=== PATIENT | male | born 1965 | race Caucasian/White ===

== ENCOUNTER 2019-01-07 20:12 | Emergency (ER) | payer OTHER ==
[2019-01-07 20:56] VITALS: RESP 18; TEMP 98.7
--- NOTE | 2019-01-07 21:57 | ED ---
ENT HPI - General Chief complaint: Dental/Oral Stated complaint: Tooth Pain Time Seen by Provider: 01/07/19 21:26 Source: patient Mode of arrival: ambulatory Limitations: no limitations - History of Present Illness Initial comments: Patient is a 53-year-old male presenting to the emergency department complaining of teeth pain 2 days. Patient states he noticed he pain about 2 days ago but the pain has been increasing. Today he noticed swelling of his left side of his mouth. He states he went to his dentist but his dentist dated there is nothing he could do for him and sent to the ER. Patient denies fever, chills, trouble breathing. Patient admits to not having regular dental follow-ups. No other complaints at this time. - Related Data Previous Rx's Medication Instructions Recorded Hydrocodone/Acetaminophen [[place] 1 tab PO Q6HR PRN #10 tab 01/07/19 5-325] Penicillin V Potassium [Pen Vee K] 500 mg PO QID #40 tablet 01/07/19 Allergies Allergy/AdvReac Type Severity Reaction Status Date / Time No Known Allergies Allergy Verified 01/07/19 21:26 Review of Systems ROS Statement: Those systems with pertinent positive or pertinent negative responses have been documented in the HPI. ROS Other: All systems not noted in ROS Statement are negative. Past Medical History Past Medical History: Hypertension History of Any Multi-Drug Resistant Organisms: None Reported Past Surgical History: No Surgical Hx Reported Additional Past Surgical History / Comment(s): Rt leg surgical repair r/t fx., Past Anesthesia/Blood Transfusion Reactions: No Reported Reaction Past Psychological History: No Psychological Hx Reported Smoking Status: Current every day smoker Past Alcohol Use History: None Reported Past Drug Use History: Marijuana - Past Family History Mother Family Medical History: No Reported History General Exam - General Exam Comments Initial Comments: GENERAL: Well-appearing and in no acute distress, but appears to be in pain. HEAD: Atraumatic, normocephalic. EYES: Pupils equal round and reactive to light, extraocular movements intact, sclera anicteric, conjunctiva are normal. ENT: TMs normal, nares patent, oropharynx clear without exudates. Moist mucous membranes. NECK: Normal range of motion, supple without lymphadenopathy or JVD. LUNGS: Breath sounds clear to auscultation bilaterally and equal. No wheezes rales or rhonchi. HEART: Regular rate and rhythm without murmurs, rubs or gallops. ABDOMEN: Soft, nontender, normoactive bowel sounds. No guarding, no rebound. No masses appreciated. : Deferred EXTREMITIES: Normal range of motion, no pitting or edema. No clubbing or cya nosis. NEUROLOGICAL: Cranial nerves II through XII grossly intact. Normal speech, normal gait. PSYCH: Normal mood, normal affect. SKIN: Warm, Dry, normal turgor, no rashes or lesions noted. Mouth: Patient has several decayed and fractured teeth in the mouth. There is erythema and swelling of the lower gumline and the front. Patient is painful to the touch. Foul odor of the breath is also noted. Limitations: no limitations Course Vital Signs 01/07/19 01/07/19 20:53 22:19 Temperature 98.7 F Pulse Rate 56 L 60 Respiratory 18 18 Rate Blood Pressure 153/87 140/82 O2 Sat by Pulse 99 99 Oximetry Medical Decision Making - Medical Decision Making Patient is a 53-year-old male complaining of dental pain and swelling 2 days. Patient admits to not having regular dental exams. On exam patient has several decayed and fractured teeth. There is erythema and swelling of the lower gumline, anterior. Patient is afebrile and there is no swelling below the jawline. He'll be started on penicillin VK and urged to follow up with dentist GRAY. Patient also given [place] 5, 10 tabs for pain control. Opioid start talking form was discussed and signed. Case discussed with Dr. Jacobson. Disposition Clinical Impression: Dental abscess, Fracture of tooth Disposition: HOME SELF-CARE Condition: Stable Instructions (If sedation given, give patient instructions): Dental Abscess (ED), Dental Caries (ED) Additional Instructions: Please return to the Emergency Department if symptoms worsen or any other concerns. Follow-up with dentist GRAY. Prescriptions: Hydrocodone/Acetaminophen [[place] 5-325] 1 tab PO Q6HR PRN #10 tab PRN Reason: Pain Penicillin V Potassium [Pen Vee K] 500 mg PO QID #40 tablet Is patient prescribed a controlled substance at d/c from ED?: Yes When asked, does pt state using other controlled substances?: No If prescribed controlled substance>3 days was MAPS reviewed?: Prescribed <3 Days If opioid is for acute pain is fill amount 7 days or less?: No If Rx opioid, was Start Talking consent form obtained?: Yes Referrals: Ethan Larson MD [Primary Care Provider] - 1-2 days
[2019-01-07] MEDS ORDERED: KETOROLAC 60 MG/2 ML VIAL IM STA (22:02)
[2019-01-07 22:21] VITALS: BP 140/82; PULSE 60
== END 2019-01-07 22:21 | disposition home or self-care (01) ==
LOC: EC 20:12
DX: S02.5XXA Fracture of tooth (traumatic), initial encounter for closed fracture (principal); K04.7 Periapical abscess without sinus; F17.200 Nicotine dependence, unspecified, uncomplicated
CPT/HCPCS: 99282; 96372; J1885

== ENCOUNTER 2022-11-24 07:26 | Day surgery (SDC) | payer OTHER ==
[2022-11-23 10:01] VITALS: BMI 22.0
[~2022-11-24 07:26] MED LIST: LACTATED RINGERS 1,000 ML IV SCH; LIDOCAINE 1% (10MG/ML) FOR IV START INTRADERMA PRN
[2022-11-24] MEDS ORDERED: LIDOCAINE 1% (10MG/ML) FOR IV START INTRADERMA ONE (08:25)
[2022-11-24] MEDS ORDERED: LACTATED RINGERS 1,000 ML IV ONE (08:25)
[2022-11-24 08:30] VITALS: TEMP 97.2
[2022-11-24] MEDS ORDERED: PROPOFOL 10 MG/ML 20 ML VIAL IV ONE (08:36)
--- NOTE | 2022-11-24 08:40 | P.GSHP ---
History of Present Illness H&P Date: 11/24/22 Chief Complaint: Positive colon guard test This a 57-year-old male presents today for colonoscopy. Patient has a recent positive colon guard test. Patient also has complaints of possible inguinal hernia. Past Medical History Past Medical History: Hyperlipidemia Additional Past Medical History / Comment(s): patient states was told he had [facility] and bleeding [facility] so stopped his atorvastatin on his own. Referred patient to pcp re meds. hx of positive cologard History of Any Multi-Drug Resistant Organisms: None Reported Past Surgical History: Orthopedic Surgery Additional Past Surgical History / Comment(s): Right leg surgery due to fracture. Right index finger surgery 2020 Past Anesthesia/Blood Transfusion Reactions: No Reported Reaction Smoking Status: Current every day smoker - Past Family History Mother Family Medical History: Deep Vein Thrombosis (DVT) Medications and Allergies Home Medications Medication Instructions Recorded Confirmed Type Atorvastatin [Lipitor] 20 mg PO HS 09/30/22 11/24/22 History Allergies Allergy/AdvReac Type Severity Reaction Status Date / Time No Known Allergies Allergy Verified 11/24/22 08:05 Surgical - Exam Vital Signs Temp Pulse Resp BP Pulse Ox 97.2 F L 73 18 151/89 99 11/24/22 08:27 11/24/22 08:27 11/24/22 08:27 11/24/22 08:27 11/24/22 08:27 - General well developed, well nourished, no distress - Eyes PERRL - ENT normal pinna - Neck no masses - Respiratory normal expansion - Cardiovascular Rhythm: regular - Abdomen Abdomen: soft, non tender Assessment and Plan Assessment: We'll perform screening colonoscopy for positive colon guard test. Patient will be examined in the office to evaluate for possible inguinal hernia.
--- NOTE | 2022-11-24 08:52 | P.OP ---
Date of Procedure: 11/24/22 Preoperative Diagnosis: Positive colon guard test Postoperative Diagnosis: Diverticulosis Procedure(s) Performed: Colonoscopy Anesthesia: MAC Surgeon: Chris Ruiz Pathology: none sent Condition: stable Disposition: PACU Description of Procedure: Patient's placed on the endoscopy table in the lateral position. He received IV sedation. Digital rectal exam performed which revealed no abnormalities. Flexible colonoscope was then placed patient anus and passed throughout the entire colon. The ileocecal valve was visualized. The cecum, ascending and transverse colon appeared normal. In the descending and sigmoid there is moderate diverticular changes. Scope was then brought back the rectum and this appeared normal. Scope withdrawn for patient.
[2022-11-24 08:57] VITALS: RESP 16
[2022-11-24 09:11] VITALS: BP 108/65; PULSE 61
== END 2022-11-24 09:33 | disposition home or self-care (01) ==
LOC: ORWHC2ENDO 07:26
PROVIDERS: ATTEND Surgery
DX: K57.30 Diverticulosis of large intestine without perforation or abscess without bleeding (principal); E78.5 Hyperlipidemia, unspecified; K21.9 Gastro-esophageal reflux disease without esophagitis; F17.210 Nicotine dependence, cigarettes, uncomplicated; Z79.899 Other long term (current) drug therapy; Z82.49 Family history of ischemic heart disease and other diseases of the circulatory system; Z98.890 Other specified postprocedural states
CPT/HCPCS: 45378; J2704

== ENCOUNTER → 2023-01-16 | Outpatient (CLI) | payer OTHER ==
--- NOTE | 2023-01-17 09:26 | CT ---
EXAMINATION TYPE: CT abdomen pelvis w con DATE OF EXAM: 01/16/2023 COMPARISON: HISTORY: Possible hernia. Diverticulitis. CT DLP: 484.1 mGycm Automated exposure control for dose reduction was used. CONTRAST: CT scan of the abdomen pelvis is performed with IV Contrast, patient injected with 100 ml mL of Isovu e 300. FINDINGS- LUNG BASES- No significant abnormality is appreciated. LIVER/GB- 2 mm hypodensity within the right lobe of the liver too small to characterize but statist ically most likely related to simple cyst. PANCREAS- No gross abnormality is seen. SPLEEN- No gross abnormality is seen. ADRENALS- No gross abnormality is seen. KIDNEYS/BLADDER- no hydronephrosis or nephrolithiasis. A low density lesion involving the right kidne y too small to characterize but likely related to simple cysts. Additional 1 cm parapelvic renal cyst on the right noted.. BOWEL- there is a small hiatal hernia. Appendix is normal. Visualized portions of the bowel are with in normal limits with no evidence of obstruction. LYMPH NODES- No greater than 1cm abdominal or pelvic lymph nodes are appreciated. OSSEOUS STRUCTURES- severe multilevel degenerative disc disease and facet arthropathy and foraminal L4-5 and L5 discogenic marrow changes. OTHER- atherosclerotic change of the aorta. There is no sizable anterior abdominal wall hernia. Loca lized atrophic change of the right rectus musculature can be associated with prior surgical intervent ion or congenital. IMPRESSION- 1. Small hiatal hernia. Stomach Limited assessment due to decompression wall thickness. There does ap pear to mild thickening of the wall the distal esophagus which can be associated reflux esophagitis. Correlate with EGD as clinically warranted. 2. There is a questionable small filling defect within a vascular branch the left hilum. This is only partially included [id number]. Patient does have a history of prior pulmonary embolism. Recommend dedicated CT pulmonary angiogram. Findings suspicious for left-sided pulmonary embolism. Report was telephoned to the patient's office nurse Bing at 9:20 AM 01/17/2023.
--- NOTE | 2023-01-17 09:52 | P.PN ---
Progress Note - Text Progress Note Date: 01/17/23 I was called by Dr. Posada regarding possibility of a left pulmonary embolism. I contacted the patient immediately and talk to him immediately about this.. The patient was at work. I recommended he go to the emergency room for a CT angiogram of the chest. The patient states that he will report to the emergency room. I have contacted the emergency room regarding him.
== END | disposition home or self-care (01) ==
LOC: RADCTMAIN 15:03
PROVIDERS: ATTEND Surgery
DX: K57.33 Diverticulitis of large intestine without perforation or abscess with bleeding (principal); K44.9 Diaphragmatic hernia without obstruction or gangrene
CPT/HCPCS: 74177; Q9967

== ENCOUNTER 2023-01-17 10:10 | Emergency (ER) | payer OTHER ==
--- NOTE | 2023-01-17 10:41 | ED ---
General Adult HPI - General Chief complaint: Recheck/Abnormal Lab/Rx Stated complaint: Recheck/poss blood clot Time Seen by Provider: 01/17/23 10:11 Source: patient, RN notes reviewed, old records reviewed Mode of arrival: ambulatory Limitations: no limitations - History of Present Illness Initial comments: 57 -year-old male presenting for evaluation of possible pulmonary embolism. Patient had CT performed of the abdomen and pelvis which showed a possible filling defect in a pulmonary artery. The patient was asked to present to the emergency department for evaluation. He was at work at the time. He denies any chest pain denies dyspnea. Denies lower extremity pain or swelling. - Related Data Home Medications Medication Instructions Recorded Confirmed No Known Home Medications 01/17/23 01/17/23 Allergies Allergy/AdvReac Type Severity Reaction Status Date / Time No Known Allergies Allergy Verified 01/17/23 11:25 Review of Systems ROS Statement: Those systems with pertinent positive or pertinent negative responses have been documented in the HPI. ROS Other: All systems not noted in ROS Statement are negative. Past Medical History Past Medical History: No Reported History Additional Past Medical History / Comment(s): patient states was told he had cancer went to [facility] and cancer and bleeding resolved so stopped h is atorvastatin on his own. Referred patient to pcp re meds. hx of positive cologard History of Any Multi-Drug Resistant Organisms: None Reported Past Surgical History: Orthopedic Surgery Additional Past Surgical History / Comment(s): Right leg surgery due to fracture. Right index finger surgery 2019 Past Anesthesia/Blood Transfusion Reactions: No Reported Reaction Past Psychological History: No Psychological Hx Reported Smoking Status: Current every day smoker Past Alcohol Use History: None Reported Past Drug Use History: Marijuana - Past Family History Mother Family Medical History: Deep Vein Thrombosis (DVT) General Exam Limitations: no limitations General appearance: alert, in no apparent distress Head exam: Present: atraumatic, normocephalic Eye exam: Present: normal appearance, PERRL ENT exam: Present: normal exam Neck exam: Present: normal inspection. Absent: tenderness Respiratory exam: Present: normal lung sounds bilaterally. Absent: respiratory distress, wheezes Cardiovascular Exam: Present: regular rate, normal rhythm GI/Abdominal exam: Present: soft. Absent: distended, tenderness, guarding Extremities exam: Present: normal inspection, normal capillary refill. Absent: calf tenderness Neurological exam: Present: alert, oriented X3 Psychiatric exam: Present: normal affect, normal mood Skin exam: Present: warm, dry, intact. Absent: cyanosis, diaphoretic Course Vital Signs 01/17/23 01/17/23 10:13 11:03 Temperature 98.9 F Pulse Rate 67 55 L Respiratory 18 Rate Blood Pressure 148/90 111/79 O2 Sat by Pulse 96 Oximetry Medical Decision Making - Medical Decision Making Was pt. sent in by a medical professional or institution (, [facility], SIGN ERECTOR AND REPAIRER, urgent care, hospital, or [facility]...) When possible be specific @ -No Did you speak to anyone other than the patient for history (EMS, parent, family, police, friend...)? What history was obtained from this source @ -No Did you review nursing and triage notes (agree or disagree)? Why? @ -I reviewed and agree with nursing and triage notes Were old charts reviewed (outside hosp., previous admission, EMS record, old EKG, old radiological studies, urgent care reports/EKG's, [facility] records)? Report findings @ -No old charts were reviewed Differential Diagnosis (chest pain, altered mental status, abdominal pain women, abdominal pain men, vaginal bleeding, weakness, fever, dyspnea, syncope, headache, dizziness, GI bleed, back pain, seizure, CVA, palpatations, mental health, musculoskeletal)? @ -[Rule out PE EKG interpreted by me (3pts min.). @ -Sinus bradycardia rate of 56, MA interval 149, QRS duration 83, QTC 368, no ST segment elevation. X-rays interpreted by me (1pt min.). @ -None done CT interpreted by me (1pt min.). @ -None done U/S interpreted by me (1pt. min.). @ -None done What testing was considered but not performed or refused? (CT, X-rays, U/S, labs)? Why? @ -None What meds were considered but not given or refused? Why? @ -None Did you discuss the management of the patient with other professionals (professionals i.e. [facility] Turcios, SIGN ERECTOR AND REPAIRER, lab, RT, psych nurse, hospice social worker, dispatcher relay, teacher, tax revenue officer, case management assistant)? Give summary @ -Case discussed with Dr. Ruiz who had sent the patient in for evaluation of possible pulmonary embolism Was smoking cessation discussed for >3mins.? @ -No Was critical care preformed (if so, how long)? @ -No Were there social determinants of health that impacted care today? How? (Homelessness, low income, unemployed, alcoholism, drug addiction, transportation, low edu. Level, literacy, decrease access to med. care, custodial, rehab)? @ -No Was there de-escalation of care discussed even if they declined (Discuss DNR or withdrawal of care, Hospice)? DNR status @ -No What co-morbidities impacted this encounter? (DM, HTN, Smoking, COPD, CAD, Cancer, CVA, ARF, Chemo, Hep., AIDS, mental health diagnosis, sleep apnea, morbid obesity)? @ -None Was patient admitted / discharged? Hospital course, mention meds given and route, prescriptions, significant lab abnormalities, going to OR and other pertinent info. @ -[57-year-old male who was sent in to rule out pulmonary embolism with possible filling defect seen on CT of the abdomen. CT angiography was obtained which did not show pulmonary embolism. His laboratory testing was unremarkable. EKG was sinus bradycardia without ischemic changes. The patient has no complaints. Undiagnosed new problem with uncertain prognosis? @ -No Drug Therapy requiring intensive monitoring for toxicity (Heparin, Nitro, Insulin, Cardizem)? @ -No Were any procedures done? @ -No Diagnosis/symptom? @ -[Pulmonary was has been ruled out. Acute, or Chronic, or Acute on Chronic? @ -default Uncomplicated (without systemic symptoms) or Complicated (systemic symptoms)? @ -default Side effects of treatment? @ -No Exacerbation, Progression, or Severe Exacerbation? @ -No Poses a threat to life or bodily function? How? (Chest pain, USA, CT, pneumonia, PE, COPD, DKA, ARF, appy, cholecystitis, CVA, Diverticulitis, Homicidal, Suicidal, threat to staff... and all critical care pts) @ -No - Lab Data Result diagrams: 01/17/23 11:09 01/17/23 11:09 Lab Results 01/17/23 01/17/23 01/17/23 Range/Units 11:09 11:09 11:09 WBC 10.4 (3.8-10.6) k/uL RBC 5.29 (4.30-5.90) m/uL Hgb 16.5 (13.0-17.5) gm/dL Hct 49.4 (39.0-53.0) % MCV 93.3 (80.0-100.0) fL MCH 31.2 (25.0-35.0) pg MCHC 33.4 (31.0-37.0) g/dL RDW 13.9 (11.5-15.5) % Plt Count 232 (150-450) k/uL MPV 8.4 Neutrophils % 72 % Lymphocytes % 17 % Monocytes % 8 % Eosinophils % 3 % Basophils % 0 % Neutrophils # 7.5 (1.3-7.7) k/uL Lymphocytes # 1.7 (1.0-4.8) k/uL Monocytes # 0.8 (0-1.0) k/uL Eosinophils # 0.3 (0-0.7) k/uL Basophils # 0.0 (0-0.2) k/uL PT 10.1 (9.0-12.0) sec INR 0.9 (<1.2) APTT 24.4 (22.0-30.0) sec Sodium 137 (137-145) mmol/L Potassium 4.4 (3.5-5.1) mmol/L Chloride 106 (98-107) mmol/L Carbon Dioxide 25 (22-30) mmol/L Anion Gap 6 mmol/L BUN 19 (9-20) mg/dL Creatinine 0.92 (0.66-1.25) mg/dL Est GFR (CKD-EPI)AfAm >90 (>60 ml/min/1.73 sqM) Est GFR (CKD-EPI)NonAf >90 (>60 ml/min/1.73 sqM) Glucose 102 H (74-99) mg/dL Calcium 8.9 (8.4-10.2) mg/dL Magnesium 2.1 (1.6-2.3) mg/dL Total Bilirubin 0.6 (0.2-1.3) mg/dL AST 26 (17-59) U/L ALT 21 (4-49) U/L Alkaline Phosphatase 119 (38-126) U/L Troponin I (0.000-0.034) ng/mL Total Protein 6.7 (6.3-8.2) g/dL Albumin 3.8 (3.5-5.0) g/dL 06/20/23 Range/Units 11:09 WBC (3.8-10.6) k/uL RBC (4.30-5.90) m/uL Hgb (13.0-17.5) gm/dL Hct (39.0-53.0) % MCV (80.0-100.0) fL MCH (25.0-35.0) pg MCHC (31.0-37.0) g/dL RDW (11.5-15.5) % Plt Count (150-450) k/uL MPV Neutrophils % % Lymphocytes % % Monocytes % % Eosinophils % % Basophils % % Neutrophils # (1.3-7.7) k/uL Lymphocytes # (1.0-4.8) k/uL Monocytes # (0-1.0) k/uL Eosinophils # (0-0.7) k/uL Basophils # (0-0.2) k/uL PT (9.0-12.0) sec INR (<1.2) APTT (22.0-30.0) sec Sodium (137-145) mmol/L Potassium (3.5-5.1) mmol/L Chloride (98-107) mmol/L Carbon Dioxide (22-30) mmol/L Anion Gap mmol/L BUN (9-20) mg/dL Creatinine (0.66-1.25) mg/dL Est GFR (CKD-EPI)AfAm (>60 ml/min/1.73 sqM) Est GFR (CKD-EPI)NonAf (>60 ml/min/1.73 sqM) Glucose (74-99) mg/dL Calcium (8.4-10.2) mg/dL Magnesium (1.6-2.3) mg/dL Total Bilirubin (0.2-1.3) mg/dL AST (17-59) U/L ALT (4-49) U/L Alkaline Phosphatase (38-126) U/L Troponin I <0.012 (0.000-0.034) ng/mL Total Protein (6.3-8.2) g/dL Albumin (3.5-5.0) g/dL Disposition Clinical Impression: Well adult exam Disposition: HOME SELF-CARE Condition: Good Is patient prescribed a controlled substance at d/c from ED?: No Referrals: Jocelynn Kirk MD [Primary Care Provider] - 1-2 days Time of Disposition: 12:24
[2023-01-17 11:18] LABS: Basophils % (A) 0 %; Eosinophils # (A) 0.3 k/uL (0-0.7); Eosinophils % (A) 3 %; HCT 49.4 % (39.0-53.0); HGB 16.5 gm/dL (13.0-17.5); Lymphocytes # (A) 1.7 k/uL (1.0-4.8); Lymphocytes % (A) 17 %; MCH 31.2 pg (25.0-35.0); MCHC 33.4 g/dL (31.0-37.0); MCV 93.3 fL (80.0-100.0); Mean Platelet Volume 8.4; Monocytes # (A) 0.8 k/uL (0-1.0); Monocytes % (A) 8 %; Neutrophils # (A) 7.5 k/uL (1.3-7.7); Neutrophils % (A) 72 %; Platelet Count 232 k/uL (150-450); RBC 5.29 m/uL (4.30-5.90); RDW 13.9 % (11.5-15.5); WBC 10.4 k/uL (3.8-10.6)
[2023-01-17] MEDS ORDERED: SODIUM CHLORIDE 0.9% 1,000 ML IV ONE (11:27)
[2023-01-17 11:31] LABS: INR 0.9 (<1.2); Partial Thromboplastin Time 24.4 sec (22.0-30.0); Prothrombin Time 10.1 sec (9.0-12.0)
[2023-01-17 11:34] LABS: ALT 21 U/L (4-49); AST 26 U/L (17-59); African American GFR (CKD) >90 (>60 ml/min/1.73 sqM); Albumin 3.8 g/dL (3.5-5.0); Alkaline Phosphatase 119 U/L (38-126); Anion Gap 6 mmol/L; Blood Urea Nitrogen 19 mg/dL (9-20); Calcium 8.9 mg/dL (8.4-10.2); Carbon Dioxide 25 mmol/L (22-30); Chloride 106 mmol/L (98-107); Glucose 102 mg/dL (74-99); Magnesium 2.1 mg/dL (1.6-2.3); Non-African American GFR(CKD) >90 (>60 ml/min/1.73 sqM); Potassium 4.4 mmol/L (3.5-5.1); Sodium 137 mmol/L (137-145); Total Bilirubin 0.6 mg/dL (0.2-1.3); Total Protein 6.7 g/dL (6.3-8.2)
--- NOTE | 2023-01-17 11:57 | CT ---
EXAMINATION TYPE: CT chest angio for PE CT DLP: 297.1 mGycm, Automated exposure control for dose reduction was used. DATE OF EXAM: 01/17/2023 11:50 AM COMPARISON: 07/20/2015 01/16/2023. CLINICAL INDICATION:Male, 57 years old with history of Possible PE; poss PE. Abnormal A/P CT yesterda y. TECHNIQUE/CONTRAST: CTA scan of the thorax is performed with IV Contrast, patient injected with 77ml mL of Isovue 370, pu lmonary embolism protocol. MIP images are created and reviewed these are created on a separate works tation.. FINDINGS: Pulmonary Artery: There is no evidence for a filling defect within the pulmonary vasculature to sugge st acute pulmonary embolism. The pulmonary artery is of normal size. Lungs/Pleura: No evidence of focal consolidation, pleural effusion or pneumothorax. Minimal parasepta l emphysema changes Airway: Large airways are patent. Heart: Heart is within normal limits for size. Vasculature: No evidence of aortic aneurysm. Mediastinum: No gross evidence of adenopathy. Musculoskeletal: No acute osseous abnormalities Soft Tissues: Unremarkable. Lower neck: No significant findings. Upper Abdomen: No significant findings. IMPRESSION: No evidence of pulmonary embolism. Filling defect correlates with likely left hilar lymph node.
[2023-01-17 12:46] VITALS: RESP 16
[2023-01-17 13:18] VITALS: BP 137/82; PULSE 64; TEMP 98.1
== END 2023-01-17 13:21 | disposition home or self-care (01) ==
LOC: EC 10:10
DX: Z00.00 Encounter for general adult medical examination without abnormal findings (principal); F17.200 Nicotine dependence, unspecified, uncomplicated; F12.90 Cannabis use, unspecified, uncomplicated
CPT/HCPCS: 36415; 93005; 80053; 83735; 84484; 85025; 85610; 85730; 71275; 99284; 96360; Q9967

== ENCOUNTER → 2024-05-31 | Outpatient (CLI) | payer OTHER | END | disposition home or self-care (01) | LOC: RADUSWWP 15:26 | PROVIDERS: ATTEND Family Medicine | DX: Z53.9 Procedure and treatment not carried out, unspecified reason (principal) ==

== ENCOUNTER → 2024-06-21 | Outpatient (CLI) | payer OTHER ==
--- NOTE | 2024-06-21 07:52 | US ---
EXAMINATION TYPE: US abdomen limited DATE OF EXAM: 06/21/2024 COMPARISON: NONE CLINICAL INDICATION: Male, 58 years old with history of R10.31 RLQ PAIN K46.9 HERNIA; Pain posterior to umbilicus. TECHNIQUE: Grayscale with or without color Doppler imaging of the area of hernia concern. Real-time scanning was performed by the hot worker utilizing Valsalva and additional dynamic maneuve rs to assess for hernia. FINDINGS: Assess for hernia at location of: No evidence of hernia visualized. IMPRESSION: No evidence for hernia. [facility], , 06/21/2024 7:49 AM
== END | disposition home or self-care (01) ==
LOC: RADUSWWP 07:19
PROVIDERS: ATTEND Family Medicine
DX: K46.9 Unspecified abdominal hernia without obstruction or gangrene (principal)
CPT/HCPCS: 76705

== ENCOUNTER → 2024-06-21 | Outpatient (CLI) | payer OTHER ==
--- NOTE | 2024-06-21 09:28 | US ---
EXAMINATION TYPE: US kidneys/renal and bladder DATE OF EXAM: 06/21/2024 COMPARISON: NONE CLINICAL INDICATION: Male, 58 years old with history of R10.31 RLQ PAIN; RLQ sensation with bladder. Nocturia. TECHNIQUE: Grayscale imaging of the bilateral kidneys and urinary bladder: FINDINGS: EXAM MEASUREMENTS: Right Kidney: 10.0 x 4.1 x 4.1 cm Left Kidney: 10.9 x 4.7 x 5.2 cm Post Void Residual Volume: 33.1 mL Right Kidney: No hydronephrosis or masses seen at time of scan Left Kidney: lower lateral anechoic lesion = 0.8 x 0.8 x 0.7 cm Bladder: distended, anechoic Bilateral Jets seen Normal Post Void Residual: Yes There is no evidence for hydronephrosis at this point in time. No nephrolithiasis is seen. No solid masses are identified. The urinary bladder is anechoic. IMPRESSION: Subcentimeter cystic lesion left kidney. [facility], , 06/21/2024 9:25 AM
== END | disposition home or self-care (01) ==
LOC: RADUSWWP 07:22
PROVIDERS: ATTEND Family Medicine
DX: R35.1 Nocturia (principal); K46.9 Unspecified abdominal hernia without obstruction or gangrene; Q61.8 Other cystic kidney diseases
CPT/HCPCS: 76770